=== PATIENT | female | born 2000 ===

== ENCOUNTER 2022-10-19 12:13 | Outpatient (CLI) | payer OTHER | END 2022-10-19 13:17 | disposition home or self-care (01) | LOC: PRENATAL 12:13 | PROVIDERS: ATTEND Obstetrics & Gynecology Maternal & Fetal Medicine | DX: Z76.1 Encounter for health supervision and care of foundling (principal) ==

== ENCOUNTER 2022-11-20 15:53 | Outpatient (CLI) | payer OTHER | END 2022-11-20 17:36 | disposition home or self-care (01) | LOC: PRENATAL 15:53 | PROVIDERS: ATTEND Obstetrics & Gynecology Maternal & Fetal Medicine | DX: O35.9XX0 Maternal care for (suspected) fetal abnormality and damage, unspecified, not applicable or unspecified (principal); O35.3XX0 Maternal care for (suspected) damage to fetus from viral disease in mother, not applicable or unspecified; Z3A.20 20 weeks gestation of pregnancy ==

== ENCOUNTER → 2023-02-12 | Outpatient (CLI) | payer OTHER | END | disposition home or self-care (01) | LOC: PRENATAL 14:17 | PROVIDERS: ATTEND Obstetrics & Gynecology Maternal & Fetal Medicine | DX: O26.849 Uterine size-date discrepancy, unspecified trimester (principal); O35.9XX0 Maternal care for (suspected) fetal abnormality and damage, unspecified, not applicable or unspecified; O36.8199 Decreased fetal movements, unspecified trimester, other fetus; Z3A.32 32 weeks gestation of pregnancy ==

== ENCOUNTER 2023-03-11 00:44 | Inpatient (IN) | payer OTHER ==
[~2023-03-11] VITALS: Ht 162.6 cm; Wt 2.7 kg
[2023-03-11] MEDS ORDERED: PRENATAL TABLE1 EAC4 PO (00:51)
[2023-03-11] MEDS ORDERED: FOLIC ACID1 MG PO (00:52)
== END 2023-03-14 11:38 | disposition home or self-care (01) | DRG 786 ==
LOC: OB/GYN 00:44 → LDR 00:44 → OB/GYN 15:30
PROVIDERS: ADMIT Obstetrics & Gynecology; ATTEND Obstetrics & Gynecology
PROC: 4A1HXCZ Monitoring of Products of Conception, Cardiac Rate, External Approach (ICD-10-PCS; 2023-03-11)
PROC: 10D00Z1 Extraction of Products of Conception, Low, Open Approach (ICD-10-PCS; principal; 2023-03-11 13:00)
DX: O36.8130 Decreased fetal movements, third trimester, not applicable or unspecified (principal); O60.14X0 Preterm labor third trimester with preterm delivery third trimester, not applicable or unspecified; Z3A.36 36 weeks gestation of pregnancy; Z37.0 Single live birth; Z20.822 Contact with and (suspected) exposure to COVID-19